=== PATIENT | female | born 1975 | race Hispanic/Latino ===

== ENCOUNTER 2017-04-27 16:48 | Emergency (ER) | payer OTHER ==
[2017-04-27 16:53] VITALS: BP 110/50; PULSE 67; RESP 18; TEMP 98.3; O2SAT 99
[2017-04-27] MEDS ORDERED: Sodium Chloride 0.9% 1,000 ML IV STA (17:15)
--- NOTE | 2017-04-27 17:35 | ED PDOC ---
HPI: Abdomen Time Seen by Provider: 04/27/17 17:04 Chief Complaint (Nursing): Abdominal Pain Chief Complaint (Provider): Abdominal Pain History Per: Patient History/Exam Limitations: no limitations Onset/Duration Of Symptoms: Hrs (x1.5) Current Symptoms Are (Timing): Gone Now Additional Complaint(s): Anu Stock is a 41 year old female with a history of an umbilical hernia for one year that presents to the ED with a chief complaint of epigastric pain that she began to experience immediately after eating about 1.5 hours prior to arrival in ED. Patient reports that the onset of her abdominal pain was accompanied by nausea and chills, but that she took two Midol immediately after and came to the ED, which has since resolved her pain. She denies any back pain , chest pain, vomiting, or diarrhea. Pain is same she gets with her umbilical hernia. No symptoms currently. No fever, cough. No dyspnea. Of Note: Patient is scheduled to have hernia repair surgery on 05/02/17. Past Medical History Reviewed: Historical Data, Nursing Documentation, Vital Signs Vital Signs: Last Vital Signs Temp 98.3 F 04/27/17 16:50 Pulse 67 04/27/17 16:50 Resp 18 04/27/17 16:50 BP 110/50 L 04/27/17 16:50 Pulse Ox 99 04/27/17 17:42 - Medical History Other PMH: umbilical hernia - Surgical History Surgical History: No Surg Hx - Family History Family History: States: Unknown Family Hx - Living Arrangements Living Arrangements: With Family - Social History Alcohol: None Drugs: Denies - Allergies Allergies/Adverse Reactions: Allergies Allergy/AdvReac Type Severity Reaction Status Date / Time No Known Allergies Allergy Verified 04/27/17 16:50 Review of Systems Constitutional: Positive for: Chills (experience [employer]). Negative for: Weakness Eyes: Negative for: Vision Change ENT: Negative for: Nose Pain, Nose Congestion Cardiovascular: Negative for: Chest Pain Respiratory: Negative for: Shortness of Breath Gastrointestinal: Positive for: Nausea (experienced [employer]), Abdominal Pain ( epigastric pain). Negative for: Vomiting, Diarrhea Musculoskeletal: Negative for: Neck Pain, Shoulder Pain, Arm Pain, Back Pain Skin: Negative for: Rash Neurological: Negative for: Weakness Physical Exam - Reviewed Nursing Documentation Reviewed: Yes Vital Signs Reviewed: Yes - Physical Exam Appears: Positive for: Non-toxic, No Acute Distress Head Exam: Positive for: ATRAUMATIC, NORMOCEPHALIC Skin: Positive for: Normal Color, Warm Eye Exam: Positive for: Normal appearance ENT: Positive for: Normal ENT Inspection Neck: Positive for: Normal, Painless ROM, Supple Cardiovascular/Chest: Positive for: Regular Rate, Rhythm. Negative for: Murmur Respiratory: Positive for: Normal Breath Sounds. Negative for: Wheezing Gastrointestinal/Abdominal: Positive for: Soft, Hernia (Hernia in perumbilical area. Mildly tender but easily reducable. Not new for patient. No echymosis). Negative for: Tenderness (no RLQ, LLQ, upper quadrant, or epigastric tenderness. ) Back: Positive for: Normal Inspection. Negative for: L CVA Tenderness, R CVA Tenderness Extremity: Positive for: Normal ROM. Negative for: Tenderness, Pedal Edema Neurologic/Psych: Positive for: Alert, Oriented. Negative for: Motor/Sensory Deficits - ECG O2 Sat by Pulse Oximetry: 99 (RA) Pulse Ox Interpretation: Normal - Progress ED Course And Treament: 1753: Stable. AAOx3. Pain free. Tolerated PO. Does not want any meds, IV, blood or further eval. States she is back to her baseline and wants to go home. Has no symptoms. currently. Advised to return for further eval and treatment. Needs possible evaluation of her pancreas and hernia. Medical Decision Making Medical Decision Making: Impression: Umbilical Hernia Plan: * CMP * CBC * Lipase * Urine dip * Urine * Pepcid 20 mg IV * NaCl 1000 mL at 1000 mLs/hr * Reevaluation Discussed with patient symptoms to be alerted for that would prompt return ED visit, which include chills, fever, nausea, or abdominal pain. Scribe Attestation: Documented by Nya Morales, acting as a scribe for Zachery Dietz MD. Provider Scribe Attestation: All medical record entries made by the Scribe were at my direction and personally dictated by me. I have reviewed the chart and agree that the record accurately reflects my personal performance of the history, physical exam, medical decision making, and the department course for this patient. I have also personally directed, reviewed, and agree with the discharge instructions and disposition. Disposition - Clinical Impression Clinical Impression: Abdominal pain, Umbilical hernia - Patient ED Disposition Is Patient to be Admitted: No Counseled Patient/Family Regarding: Diagnosis, Need For Followup - Disposition Referrals: [facility] [Outside] - 04/28/17 Disposition: Routine/Home Disposition Time: 17:56 Condition: STABLE Additional Instructions: Return right away if not better. You did not get any blood work or evaluation done today. You need to have your pancreas and hernia evaluated, specially if you still get symptoms. Instructions: Umbilical Hernia (ED), Acute Abdominal Pain (ED) Forms: [employer] ([place])
== END 2017-04-27 17:30 | disposition home or self-care (01) ==
LOC: H.ER 16:48
DX: K42.9 Umbilical hernia without obstruction or gangrene (principal)